=== PATIENT | female | born 1965 | race Caucasian/White ===

== ENCOUNTER 2019-01-07 12:31 | Emergency (ER) | payer BC ==
[~2019-01-07] VITALS: Ht 152.4 cm; Wt 68.5 kg
[2019-01-07 13:13] LABS: BASO # 0.1 x10^3/uL (0.0-0.2); BASO % 2 % (0-3); EOS # 0.3 x10^3/uL (0.0-0.7); EOS % 4 % (0-3); HEMATOCRIT 39.5 % (36.0-47.0); LYMPH # 2.2 x10^3/uL (1.0-4.8); LYMPH % 30 % (24-48); MEAN CORPUSCULAR HEMOGLOBIN 29 pg (25-35); MEAN CORPUSCULAR HGB CONC 33 g/dL (31-37); MEAN CORPUSCULAR VOLUME 88 fL (79-100); MONO # 0.4 x10^3/uL (0.0-1.1); MONO % 5 % (0-9); NEUT # 4.2 x10^3uL (1.8-7.7); NEUT % 59 % (31-73); PLATELET COUNT 324 x10^3/uL (140-400); RED BLOOD COUNT 4.48 x10^6/uL (3.50-5.40); RED CELL DISTRIBUTION WIDTH 13.5 % (11.5-14.5); WHITE BLOOD COUNT 7.1 x10^3/uL (4.0-11.0)
[2019-01-07] MEDS ORDERED: IV NORMAL SALINE 1,000ML 1,000 ML IV SCH (13:14)
[2019-01-07] MEDS ORDERED: ONDANSETRON PF 4 MG/2 ML VIAL. IV ONE (13:15)
--- NOTE | 2019-01-07 13:17 | PHYS DOC ---
Past History Past Medical History: No Pertinent History Past Surgical History: Cholecystectomy Alcohol Use: Occasionally Drug Use: None Adult General Chief Complaint Chief Complaint: ABDOMINAL PAIN HPI HPI Patient is a 53 year old female who presents with complaint of right-sided abdominal and pelvic pain. The patient states her symptoms have been constant over the past week, however she states that she has been having recurrent symptoms similar to her current episode over the past 20 years. The patient states that she has not received any full workup regarding her pain issues. States however that they seem to be worsening over the past week. States that she made an appointment with an [facility] physician states that she would not be able to be seen until February 14. Due to her worsening pain, she states that she spoke with the nurse at the office and was told to come to the emergency department for further evaluation. Denies any associated fever, dysuria, hematuria, or shortness of breath. States her pain is currently 8 out of 10. Has not taking medications for symptoms at this time. Review of Systems Review of Systems Constitutional: Denies fever or chills [] Eyes: Denies change in visual acuity, redness, or eye pain [] HENT: Denies nasal congestion or sore throat [] Respiratory: Denies cough or shortness of breath [] Cardiovascular: Denies chest pain or edema[] GI: Abdominal pain, denies nausea, vomiting, bloody stools or diarrhea [] : Denies dysuria or hematuria [] Musculoskeletal: Denies back pain or joint pain [] Integument: Denies rash or skin lesions [] Neurologic: Denies headache, focal weakness or sensory changes [] All other systems were reviewed and found to be within normal limits, except as documented in this note. Allergies Allergies Allergies Coded Allergies Type Severity Reaction Last Updated Verified codeine Adverse Reaction Intermediate N/V 01/07/19 Yes Physical Exam Physical Exam Constitutional: Well developed, well nourished, no acute distress, non-toxic appearance. [] HENT: Normocephalic, atraumatic, bilateral external ears normal, oropharynx moist, no oral exudates, nose normal. [] Eyes: PERRLA, EOMI, conjunctiva normal, no discharge. [] Neck: Normal range of motion, no tenderness, supple, no stridor. [] Cardiovascular:Heart rate regular rhythm, no murmur [] Lungs & Thorax: Bilateral breath sounds clear to auscultation [] Abdomen: Bowel sounds normal, soft, no tenderness, no masses, no pulsatile masses. [] Skin: Warm, dry, no erythema, no rash. [] Back: No tenderness, no CVA tenderness. [] Extremities: No tenderness, no cyanosis, no clubbing, ROM intact, no edema. [] Neurologic: Alert and oriented X 3, normal motor function, normal sensory function, no focal deficits noted. [] Psychologic: Affect normal, judgement normal, mood normal. [] Current Patient Data Vital Signs Vital Signs Date Time Temp Pulse Resp B/P (MAP) Pulse Ox O2 Delivery O2 Flow Rate FiO2 01/07/19 12:40 98.7 67 20 97 Room Air Lab Results Laboratory Tests Test 01/07/19 12:55 White Blood Count 7.1 x10^3/uL (4.0-11.0) Red Blood Count 4.48 x10^6/uL (3.50-5.40) Hemoglobin 13.0 g/dL (12.0-15.5) Hematocrit 39.5 % (36.0-47.0) Mean Corpuscular Volume 88 fL (79-100) Mean Corpuscular Hemoglobin 29 pg (25-35) Mean Corpuscular Hemoglobin Concent 33 g/dL (31-37) Red Cell Distribution Width 13.5 % (11.5-14.5) Platelet Count 324 x10^3/uL (140-400) Neutrophils (%) (Auto) 59 % (31-73) Lymphocytes (%) (Auto) 30 % (24-48) Monocytes (%) (Auto) 5 % (0-9) Eosinophils (%) (Auto) 4 % (0-3) H Basophils (%) (Auto) 2 % (0-3) Neutrophils # (Auto) 4.2 x10^3uL (1.8-7.7) Lymphocytes # (Auto) 2.2 x10^3/uL (1.0-4.8) Monocytes # (Auto) 0.4 x10^3/uL (0.0-1.1) Eosinophils # (Auto) 0.3 x10^3/uL (0.0-0.7) Basophils # (Auto) 0.1 x10^3/uL (0.0-0.2) EKG EKG Not performed[] Radiology/Procedures Radiology/Procedures [address] [address] IMAGING REPORT Signed PATIENT: SYD HATCH ACCOUNT: [id number] : 1965 LOCATION: ER AGE: 53 SEX: F EXAM STATUS: REG ER ORD. PHYSICIAN: XIANG JEFFERSON MD REASON: right-sided pelvic pain for one week PROCEDURE: US PELVIS Examination: Ultrasound pelvis HISTORY: History of right-sided pelvic pain for one week COMPARISON: None available FINDINGS: The uterus measures 6.0 x 3.2 x 2.1 cm. Endometrium measures 3.8 mm in thickness. The right and left ovaries are not visualized. However patient did feel some pain when pressure was applied to the right adnexa IMPRESSION: 1. Limited examination as the right and left ovaries could not be identified due to bowel gas. Electronically signed by: Skyler Monae MD (01/07/2019 4:20 PM) [facility] DICTATED AND SIGNED BY: SKYLER MONAE MD DATE: 01/07/19 1620 CC: XIANG JEFFERSON MD; PCP,NO ~ [address] [address] IMAGING REPORT Signed PATIENT: SYD HATCH ACCOUNT: [id number] : 1965 LOCATION: ER AGE: 53 SEX: F EXAM STATUS: REG ER ORD. PHYSICIAN: XIANG JEFFERSON MD REASON: RLQ abdominal pain for 1 week PROCEDURE: CT ABD PELV W/ IV CONTRST ONLY Examination: CT of the abdomen pelvis with IV contrast HISTORY: History of right lower quadrant abdominal pain for one week COMPARISON: None available TECHNIQUE: Axial CT images of the abdomen pelvis were performed with IV contrast. Coronal and sagittal reformats are performed Exposure: One or more of the following individualized dose reduction techniques were utilized for this examination: 1. Automated exposure control 2. Adjustment of the mA and/or kV according to patient size 3. Use of iterative reconstruction technique. FINDINGS: Minimal bibasilar lung atelectasis. No evidence of free air identified in the abdomen. The visualized liver, spleen, adrenals grossly appears unremarkable. Cholecystectomy clips identified. The stomach is mildly distended. The visualized pancreas grossly appears unremarkable. The small bowel is nondilated. The appendix is normal. Feces and gas noted in the colon. There is a focal thickened appearance of the wall of the distal transverse colon could be due to nondistention or underlying mucosal lesion. The bilateral kidneys enhance symmetrically. Subcentimeter cystic structures identified in the bilateral kidneys probably cysts. The urinary bladder is mildly distended. Mild degenerative changes throughout the lumbar spine. Small sclerotic density identified in the posterior left iliac bone measuring 1.1 cm probably a bone island. IMPRESSION: 1. No acute intra-abdominal findings. 2. There is a focal thickened appearance of the wall of the distal transverse colon could be due to nondistention or underlying mucosal lesion, neoplasm is not excluded. Consider follow-up colonoscopy. Electronically signed by: Skyler Monae MD (01/07/2019 2:49 PM) [facility] DICTATED AND SIGNED BY: SKYLER MONAE MD DATE: 01/07/19 1449 CC: XIANG JEFFERSON MD; PCP,NO ~ [] Course & Med Decision Making Course & Med Decision Making Pertinent Labs and Imaging studies reviewed. (See chart for details) Patient was given IV fluids, Bentyl, and Zofran with improvement symptoms. CT and also challenging show no evidence of acute surgical findings. Blood work and urinalysis are unremarkable at this time. Based off of today's examination, I do not identify any acute conditions requiring stabilization at this time. Given the chronicity of the patient's symptoms, I did recommend the patient would likely need to pursue specialty evaluation to further evaluate the cause of patient's ongoing symptoms. Patient was prescribed Bentyl and advised to start on a probiotic. Recommended use of low-dose NSAIDs as needed for symptoms. Recommended follow-up with primary doctor in the next 5-7 days for reevaluation and return to the emergency department for any worsening symptoms. Patient was understanding and in agreement with treatment plan.[] Dragon Disclaimer Dragon Disclaimer This electronic medical record was generated, in whole or in part, using a voice recognition dictation system. Departure Departure: Impression: Primary Impression: Abdominal pain Disposition: 01 HOME, SELF-CARE Condition: STABLE Referrals: PCP,KATHRINE (PCP) Patient Instructions: Abdominal Pain (Nonspecific) Additional Instructions: Consider taking ibuprofen 200-400 mg every 6-8 hours as needed for pain. You may also consider taking a daily probiotic to improve intestinal health. Follow-up with primary doctor in 5-7 days for reevaluation. Return to the emergency department for any worsening symptoms. Scripts Dicyclomine Hcl (DICYCLOMINE HCL) 20 Mg Tablet 1 TAB PO QID, #120 TAB Prov: XIANG JEFFERSON MD 01/07/19 Problem Qualifiers Primary Impression: Abdominal pain Abdominal location: right lower quadrant Qualified Codes: R10.31 - Right lower quadrant pain XIANG JEFFERSON MD Jan 07, 2019 13:17
[2019-01-07 13:20] LABS: BACTERIA,URINE 0 /HPF (0-FEW); BILIRUBIN,URINE NEG (NEG); CLARITY,URINE CLEAR; COLOR,URINE STRAW; GLUCOSE,URINE NEG (NEG); NITRITE,URINE NEG (NEG); RBC,URINE OCC /HPF (0-2); SQUAMOUS EPITHELIAL CELL,UR FEW /LPF; UROBILINOGEN,URINE 0.2 mg/dL (0.2 mg/dL); WBC,URINE OCC /HPF (0-4)
[2019-01-07 13:25] LABS: ALBUMIN 3.8 g/dL (3.4-5.0); ALBUMIN/GLOBULIN RATIO 0.9 (1.0-1.7); CALCIUM 9.3 mg/dL (8.5-10.1); CREATININE 0.8 mg/dL (0.6-1.0); POTASSIUM 3.8 mmol/L (3.5-5.1); TOTAL BILIRUBIN 0.3 mg/dL (0.2-1.0); TOTAL PROTEIN 8.1 g/dL (6.4-8.2)
[2019-01-07] MEDS ORDERED: IOHEXOL 300 MG/ML 75 ML VIAL. IV ONE (14:15)
--- NOTE | 2019-01-07 14:52 | RAD ---
Examination: CT of the abdomen pelvis with IV contrast HISTORY: History of right lower quadrant abdominal pain for one week COMPARISON: None available TECHNIQUE: Axial CT images of the abdomen pelvis were performed with IV contrast. Coronal and sagittal reformats are performed Exposure: One or more of the following individualized dose reduction techniques were utilized for this examination: 1. Automated exposure control 2. Adjustment of the mA and/or kV according to patient size 3. Use of iterative reconstruction technique. FINDINGS: Minimal bibasilar lung atelectasis. No evidence of free air identified in the abdomen. The visualized liver, spleen, adrenals grossly appears unremarkable. Cholecystectomy clips identified. The stomach is mildly distended. The visualized pancreas grossly appears unremarkable. The small bowel is nondilated. The appendix is normal. Feces and gas noted in the colon. There is a focal thickened appearance of the wall of the distal transverse colon could be due to nondistention or underlying mucosal lesion. The bilateral kidneys enhance symmetrically. Subcentimeter cystic structures identified in the bilateral kidneys probably cysts. The urinary bladder is mildly distended. Mild degenerative changes throughout the lumbar spine. Small sclerotic density identified in the posterior left iliac bone measuring 1.1 cm probably a bone island. IMPRESSION: 1. No acute intra-abdominal findings. 2. There is a focal thickened appearance of the wall of the distal transverse colon could be due to nondistention or underlying mucosal lesion, neoplasm is not excluded. Consider follow-up colonoscopy. Electronically signed by: Skyler Monae MD (01/07/2019 2:49 PM) [facility]
--- NOTE | 2019-01-07 16:23 | RAD ---
Examination: Ultrasound pelvis HISTORY: History of right-sided pelvic pain for one week COMPARISON: None available FINDINGS: The uterus measures 6.0 x 3.2 x 2.1 cm. Endometrium measures 3.8 mm in thickness. The right and left ovaries are not visualized. However patient did feel some pain when pressure was applied to the right adnexa IMPRESSION: 1. Limited examination as the right and left ovaries could not be identified due to bowel gas. Electronically signed by: Skyler Monae MD (01/07/2019 4:20 PM) [facility]
[2019-01-07 16:40] VITALS: BP 138/74
[2019-01-07] MEDS ORDERED: DICY20TA3 PO (16:48)
== END 2019-01-07 16:54 | disposition home or self-care (01) ==
LOC: ER 12:31
DX: R10.31 Right lower quadrant pain (principal); R10.2 Pelvic and perineal pain; Z90.49 Acquired absence of other specified parts of digestive tract; Z88.5 Allergy status to narcotic agent
CPT/HCPCS: 36415; 74177; 76856; 80053; 81001; 83690; 85025; 96374; 96375; 96376; 99285; J2405; J3010; Q9967; J7030

== ENCOUNTER 2021-05-16 11:35 | Emergency (ER) | payer BC, OTHER ==
[~2021-05-16] VITALS: Ht 152.4 cm; Wt 62.7 kg
[~2021-05-16 11:35] MED LIST: DICY20TA PO
[2021-05-16 11:43] VITALS: BP 139/79
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
[2021-05-16 12:44] LABS: BASO # 0.1 x10^3/uL (0.0-0.2); BASO % 1 % (0-3); EOS # 0.1 x10^3/uL (0.0-0.7); EOS % 2 % (0-3); HEMOGLOBIN 12.3 g/dL (12.0-15.5); LYMPH # 1.4 x10^3/uL (1.0-4.8); LYMPH % 23 % (24-48); MEAN CORPUSCULAR HEMOGLOBIN 29 pg (25-35); MEAN CORPUSCULAR HGB CONC 33 g/dL (31-37); MEAN CORPUSCULAR VOLUME 89 fL (79-100); MONO # 0.3 x10^3/uL (0.0-1.1); MONO % 4 % (0-9); NEUT # 4.3 x10^3uL (1.8-7.7); NEUT % 69 % (31-73); PLATELET COUNT 246 x10^3/uL (140-400); RED BLOOD COUNT 4.17 x10^6/uL (3.50-5.40); RED CELL DISTRIBUTION WIDTH 13.6 % (11.5-14.5); WHITE BLOOD COUNT 6.3 x10^3/uL (4.0-11.0)
--- NOTE | 2021-05-16 12:47 | RAD ---
EXAM: Head CT without contrast. HISTORY: Syncope. Fall. TECHNIQUE: Computed tomographic images of the head were obtained without contrast. *One or more of the following individualized dose reduction techniques were utilized for this examina tion: 1. Automated exposure control. 2. Adjustment of the mA and/or kV according to patient size. 3. Use of iterative reconstruction technique. COMPARISON: None. FINDINGS: There is no acute or subacute extra-axial or intraparenchymal hemorrhage. There is no mass effect or midline shift. There is no hydrocephalus. The plummer-white matter differentiation pattern is intact. The visualized portions of the orbits, paranasal sinuses and mastoid air cells are unremarkable. No s uspicious calvarial lesion is seen. IMPRESSION: No acute intracranial findings. Electronically signed by: Alexus Silva MD (05/16/2021 12:44 PM) [facility]
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
[2021-05-16 12:56] LABS: CALCIUM 8.8 mg/dL (8.5-10.1); CREATININE 0.8 mg/dL (0.6-1.0); GFR 74.5; POTASSIUM 4.1 mmol/L (3.5-5.1)
[2021-05-16 13:02] LABS: ALBUMIN 3.7 g/dL (3.4-5.0); TOTAL BILIRUBIN 0.3 mg/dL (0.2-1.0); TOTAL PROTEIN 7.4 g/dL (6.4-8.2)
--- NOTE | 2021-05-16 14:23 | EKG ---
[address] [address] Test Date: 2021-05-16 Test Time: 12:09:55 Pat Name: SYD HATCH Department: Room: Gender: F [employer] Support Specialist: PIPE : 1965 Requested By: MARYAN LEBRON Order Number: [id number] Reading MD: Measurements Intervals [place] Rate: 45 P: -90 HI: 92 QRS: 38 QRSD: 94 T: 40 QT: 494 QTc: 426 Interpretive Statements SINUS BRADYCARDIA OTHERWISE NORMAL ECG RI6.02 No previous ECG available for comparison
== END 2021-05-16 13:28 | disposition home or self-care (01) ==
LOC: ER 11:35
DX: S00.03XA Contusion of scalp, initial encounter (principal); S60.221A Contusion of right hand, initial encounter; R55 Syncope and collapse; Z88.5 Allergy status to narcotic agent; W20.8XXA Other cause of strike by thrown, projected or falling object, initial encounter; Y93.89 Activity, other specified; Y92.89 Other specified places as the place of occurrence of the external cause; Y99.8 Other external cause status
CPT/HCPCS: 36415; 70450; 71045; 73130; 80053; 84484; 85025; 93005; 99285-25